=== PATIENT | female | born 1995 | race Caucasian/White ===

== ENCOUNTER 2018-10-01 09:49 | Emergency (ER) | payer SELFPAY ==
--- NOTE | 2018-10-01 10:22 | ED Physician Documentation ---
General Adult - HISTORIAN Historian: patient - HPI Stated Complaint: Fever, cough Chief Complaint: General Adult Additional Information: Intro self as [employer]. pt presents to the ED via POV c/o productive cough, fever/chills x 4 days. pt is a 1/2 ppd smoker. denies other symptoms or complaints. pt denies current chest pain, dyspnea, syncope/near syncope, headache, dizziness, visual disturbances, n/v/d, rash, sick contacts, dysuria, trauma. melena or hematochezia, bleeding or easy bruising, change in bowel or bladder function, no recent weight loss/gain, anxiety or depression. ROS Negative unless otherwise specified. - ROS CONST: fever, chills, other (malaise) EYES/ENT: denies: sore throat, nasal drainage, nasal congestion CVS/RESP: cough. denies: chest pain, shortness of breath GI/: denies: abdominal pain, problems urinating, vomiting, nausea, diarrhea MS/SKIN/LYMPH: none NEURO/PSYCH: denies: headache, fainting, dizziness, tingling, numbness, difficulty walking, difficulty with speech - PAST HX Past History: none Other History: none Surgeries/Procedures: none Allergies/Adverse Reactions: Allergies Allergy/AdvReac Type Severity Reaction Status Date / Time BANANAS Allergy Uncoded 04/12/16 20:42 Home Medications: Ambulatory Orders Medication Instructions Recorded NK 08/18/15 - SOCIAL HX Smoking History: less than 1 pack/day Alcohol Use: none Drug Use: none - FAMILY HX Family History: No - VITAL SIGNS Vital Signs: Vital Signs Temp Pulse Resp BP Pulse Ox 101/70 04/12/16 20:37 - REVIEWED ASSESSMENTS Nursing Assessment Reviewed: Yes Vitals Reviewed: Yes General Adult Physical Exam - PHYSICAL EXAM GENERAL APPEARANCE: no distress EENT: eye inspection normal, ENT inspection normal, pharynx normal, no signs of dehydration, JARAD, no nystagmus, TM's nml NECK: normal inspection, thyroid normal. No: lymphadenopathy RESPIRATORY: no resp distress, chest non-tender, breath sounds normal, other (cough). No: wheezes, rales, rhonchi CVS: reg rate & rhythm, heart sounds normal, equal pulses, no murmur, no gallop, PMI nml, no JVD, no friction rub, 24 ABDOMEN: soft, no organomegaly, normal bowel sounds, no abdominal bruit, no distension SKIN: normal color, warm/dry, NR, INT, PAL, DR EXTREMITIES: non-tender, normal range of motion, no evidence of injury, no edema, J, [employer] NEURO: oriented X3, motor nml, sensation nml, mood/affect nml Discharge Clincal Impression: Bronchitis Referrals: Primary Doctor,No [Primary Care Provider] - 2 Days Additional Instructions: azithromycin 250 mg. Two tabs day one. One tab days 2-5 Rest. Increase fluids like gatoraid or other electrolyte replacement. Prednisone 5 mg taper once daily as directed Ibuprofen 600 mg every 6 hours for fever/inflammation Tylenol 650 mg every 4-6 hours for pain/fever take multivitamin daily use cool humidifier in room you are sleeping. you may sit in bathroom outside hot shower to inhale the steam to soothe lungs seek medical care immediately if difficult to wake, difficulty breathing, feeling faint or fainting, increased rash, chest pain, shortness of breath, or fever not controlled by tylenol/motrin or any concern. follow up with primary care next week or before if not improving as expected. PLEASE UNDERSTAND THAT THIS IS AN EMERGENCY EVALUATION FOR YOUR COMPLAINT AND BY NATURE IS LIMITED AND NOT A SUBSTITUTE FOR ONGOING MEDICAL CARE. EVEN THOUGH TEST RESULTS AND TREATMENT PLAN WERE EXPLAINED THERE MAY BE A NEED FOR ADDITIONAL TESTING TO FULLY DETERMINE THE EXTENT OF YOUR ILLNESS/INJURY/OR CONCERN SO YOU SHOULD CONTACT AND OR ESTABLISH WITH A PRIMARY CARE PROVIDER (OR REFERRAL DOCTOR IF APPLICABLE) FOR AN APPOINTMENT SOON POSSIBLE Condition: Good Disposition: 01 HOME, SELF-CARE Decision to Admit: NO Date of Decison to Admit: 10/01/18 Decision Time: 10:28
[2018-10-01 10:30] VITALS: BP 108/53
== END 2018-10-01 10:37 | disposition home or self-care (01) ==
LOC: ED 09:49
DX: J40 Bronchitis, not specified as acute or chronic (principal); Z72.0 Tobacco use
CPT/HCPCS: 87400; 99282; 99283

== ENCOUNTER 2018-11-27 00:07 | Emergency (ER) | payer SELFPAY | END 2018-11-27 00:17 | disposition left against medical advice (07) | LOC: ED 00:07 | DX: Z53.29 Procedure and treatment not carried out because of patient's decision for other reasons (principal) ==

== ENCOUNTER 2019-01-15 03:37 | Emergency (ER) | payer SELFPAY ==
[2019-01-15] MEDS ORDERED: IPRATROPIUM/ALBUTEROL SULFATE 3 ML AMPUL.NEB NEB ONE (03:46)
[2019-01-15] MEDS: IPRATROPIUM/ALBUTEROL SULFATE 3 ML AMPUL.NEB NEB ONE (03:57)
--- NOTE | 2019-01-15 04:04 | ED Physician Documentation ---
Upper Respiratory Symptoms - HISTORIAN Historian: patient - HPI Stated Complaint: cough Chief Complaint: Cough/ Upper Respiratory Additional Information: Patient presents to ED via EMS with a 2 week history of cough, worsening ton ight. Patient states she has a history of bronchitis and usually is able to cough up some mucus, however, over the past several day her cough has turned dry. She denies fever, chills, night sweats, chest pain or shortness of breath. Onset: days ago (14) Duration: intermittent episodes Context: denies: recent foreign travel Severity: moderate Associated Symptoms: denies: fever, chills, chest pain, productive cough, shortness of breath, hurts to breathe - ROS CONST/EYES: denies: weakness CVS/RESP: denies: chest pain, shortness of breath LYMPH: denies: leg swelling GI/: denies: vomiting, nausea NEURO/PSYCH: denies: fainting MS/SKIN: denies: muscle aches - PAST HX Lung Disease: denies: asthma PE Risk Factors: none Surgeries/Procedures: none Allergies/Adverse Reactions: Allergies Allergy/AdvReac Type Severity Reaction Status Date / Time BANANAS Allergy Uncoded 01/15/19 03:55 Home Medications: Ambulatory Orders Medication Instructions Recorded Azithromycin 500 mg PO DAILY #5 tablet 01/15/19 predniSONE [Deltasone] 20 mg PO DIRECTED #6 tablet 01/15/19 - SOCIAL HX Smoking History: cigarettes Alcohol Use: none Drug Use: marijuana - FAMILY HX Family History: none - VITAL SIGNS Vital Signs: Vital Signs Temp Pulse Resp BP Pulse Ox 98.2 F 66 28 H 89/51 99 01/15/19 03:45 01/15/19 03:45 01/15/19 03:45 01/15/19 03:45 01/15/19 03:45 - REVIEWED ASSESSMENTS Nursing Assessment Reviewed: Yes Vitals Reviewed: Yes ED Results Lab/Radiology - Radiology Radiology Impressions: Report Submission Date: Jan 15, 2019 4:35:41 AM CDT Patient Study Name: CLAIRE BRADLEY Date: Jan 15, 2019 4:04:00 AM CDT Modality Type: DX Gender: F Description: CHEST 1VIEW : 89 Institution: [facility] Physician: MARIVEL REARDON Portable chest History: Cough and tachycardia Findings: The lungs are clear and mildly hyperinflated. Heart size is normal. There is no pleural effusion. Osseous structures are intact. Electronically signed on Jan 15, 2019 4:35:41 AM CDT by: Azael Ramos - Orders Orders: ED Orders Category Date Time Status Place IV Lock 1T Care 01/15/19 03:54 Active CHEST 1VIEW [RAD] Stat Exams 01/15/19 Taken CBC/PLATELET/DIFF Routine Lab 01/15/19 Ordered CMP Routine Lab 01/15/19 Ordered Azithromycin [Zithromax] Med 01/15/19 04:10 Discontinued 500 mg PO NOW ONE Ipratropium/Albuterol Sulfate [Duoneb] Med 01/15/19 03:46 Discontinued 3 ml NEB .STK-MED ONE Ipratropium/Albuterol Sulfate [Duoneb] Med 01/15/19 03:53 Discontinued 3 ml NEB NOW ONE LORazepam [Ativan] Med 01/15/19 03:55 Discontinued 1 mg IV NOW ONE diphenhydrAMINE HCL [Benadryl] Med 01/15/19 04:06 Discontinued 50 mg IVP NOW ONE methylPREDNISolone SOD SUCC [Solu-MEDROL] Med 01/15/19 04:06 Discontinued 125 mg IVP NOW ONE Upper Respiratory Symptoms - EXAM General Appearance: hyperventilating EENT: eyes nml inspection. No: pharyngeal erythema Neck: supple. No: lymphadenopathy Respiratory: breath sounds nml, no pleuritic chest pain Abdomen: non-tender, nml bowel sounds CVS: reg rate & rhythm, heart sounds normal Skin: color nml, no rash, warm,dry Extremities: non-tender, no edema Neuro/Psych: oriented x3, other (anxious) Discharge Clincal Impression: Acute bronchitis Qualifiers: Bronchitis organism: unspecified organism Qualified Code(s): J20.9 - Acute bronchitis, unspecified Prescriptions: Azithromycin 500 mg PO DAILY #5 tablet predniSONE [Deltasone] 20 mg PO DIRECTED #6 tablet Referrals: Primary Doctor,No [Primary Care Provider] - 2 Days Additional Instructions: 1. Take antibiotics until gone 2. Add daily antihistamine such as Claritin, Zyrtec, Xyzal or Lamar 3. Smoking cessation strongly encouraged 4. Follow up with PCP within 1 week 5. Return to ER fo new or worsening symptoms Condition: Stable Disposition: HOME, SELF-CARE Decision to Admit: NO Date of Decison to Admit: 01/15/19 Decision Time: 04:52
[2019-01-15] MEDS: LORazepam 2 MG/ML VIAL IV ONE (04:26)
[2019-01-15] MEDS: methylPREDNISolone SOD SUCC 125 MG/2 ML VIAL IVP ONE (04:27)
[2019-01-15] MEDS: AZITHROMYCIN 250 MG TABLET PO ONE (04:36)
[2019-01-15] MEDS: diphenhydrAMINE HCL 50 MG/ML VIAL IVP ONE (04:36)
[2019-01-15 05:07] VITALS: BP 111/64
[2019-01-15 05:19] LABS: BASOPHILS % 2.7 % (0.0-1.5); EOSINOPHILS % 1.2 % (0.0-6.8); MEAN CORPUSCULAR HEMOGLOBIN 32.3 pg (28.0-34.0); MONOCYTES % 5.2 % (0.0-11.0)
[2019-01-15 05:30] LABS: eGFR (Non-African) > 60
--- NOTE | 2019-01-15 06:20 | Diagnostic Imaging Report ---
MARIVEL REARDON [facility] [address] [facility].[address] [id number] Report Submission Date: Jan 15, 2019 4:35:41 AM CDT Patient Study Name: CLAIRE BRADLEY Date: Jan 15, 2019 4:04:00 AM CDT Modality Type: DX Gender: F Description: CHEST 1VIEW : 89 Institution: [facility] Physician: MARIVEL REARDON Portable chest History: Cough and tachycardia Findings: The lungs are clear and mildly hyperinflated. Heart size is normal. There is no pleural effusion. Osseous structures are intact. Electronically signed on Jan 15, 2019 4:35:41 AM CDT by: Azael PACHECO
== END 2019-01-15 05:07 | disposition home or self-care (01) ==
LOC: ED 03:37
DX: J20.9 Acute bronchitis, unspecified (principal); Z72.0 Tobacco use
CPT/HCPCS: 36415; 71045; 80053; 85025; 94640; 96374; 96375; 99283; 99284; J1200; J2060; J2930; S1016